=== PATIENT | female | born 1960 | race Caucasian/White ===

== ENCOUNTER 2016-08-13 22:16 | Emergency (ER) | payer BC | END 2016-08-14 00:52 | disposition home or self-care (01) | LOC: ER 22:16 | DX: I80.01 Phlebitis and thrombophlebitis of superficial vessels of right lower extremity (principal); L03.115 Cellulitis of right lower limb; L03.125 Acute lymphangitis of right lower limb; I10 Essential (primary) hypertension; E03.9 Hypothyroidism, unspecified; I25.2 Old myocardial infarction; Z95.5 Presence of coronary angioplasty implant and graft; Z87.891 Personal history of nicotine dependence; Z79.82 Long term (current) use of aspirin | CPT/HCPCS: 36415; 80053; 85025; 85610; 85730; 93971 ==